=== PATIENT | female | born 1970 | race Caucasian/White ===

== ENCOUNTER 2021-07-09 18:34 | Emergency (ER) | payer OTHER, SELFPAY ==
--- NOTE | ~2021-07-09 | XR_ITS ---
EXAMINATION: XR CHEST CLINICAL INFORMATION: Cough. COMPARISON: 09/17/2018 TECHNIQUE: Frontal view of the chest was obtained. FINDINGS: The lungs are well expanded. There is no focal consolidation, edema, or effusion. No pneumothorax. The cardiomediastinal silhouette is within normal limits. No acute osseous abnormality. XR/XR chest 1V IMPRESSION: Clear lungs.
[2021-07-09 19:42] VITALS: BP 141/102; PULSE 99; RESP 16; TEMP 36.6; O2SAT 98; BMI 32.9
--- NOTE | 2021-07-09 19:50 | ECG_ITS ---
Test Reason : CHEST WALL PAIN Blood Pressure : / mmHG Vent. Rate : 092 BPM Atrial Rate : 092 BPM P-R Int : 130 ms QRS Dur : 076 ms QT Int : 360 ms P-R-T Axes : 044 026 038 degrees QTc Int : 445 ms Normal sinus rhythm Normal ECG When compared with ECG of 17-SEP-2018 19:21, No significant change was found Referred By: Generic ED Physician Electronically Signed By:RENE SERRA
[2021-07-09 22:36] LABS: Basophils Percent Auto 0.2 % (0-2); Eosinophils Absolute Auto 0.2 X10*3/uL (0.0-0.4); Eosinophils Percent Auto 3.4 % (0-4); Hematocrit 35.7 % (37.0-47.0); Hemoglobin 11.4 g/dl (12.0-16.0); Imm Gran Abs Auto 0.01 X10*3/uL (0.00-0.03); Imm Gran Pct Auto 0.2 % (0.0-0.4); Lymphocytes Absolute Auto 1.4 X10*3/uL (1.2-4.9); Lymphocytes Percent Auto 24.6 % (20-40); MANUAL DIFF FLAG NO; Mean Corpuscular HGB Conc 31.9 g/dl (31.0-35.0); Mean Corpuscular Hemoglobin 30.5 pg (27.0-33.0); Mean Corpuscular Volume 95.5 fL (80.0-98.0); Mean Platelet Volume 8.7 fL (9.4-12.3); Monocytes Absolute Auto 0.3 X10*3/uL (0.1-1.2); Monocytes Percent Auto 5.9 % (2-11); Neutrophils Absolute Auto 3.7 x10*3/uL (2.0-8.3); Neutrophils Percent Auto 65.7 % (45-73); Platelet Count 254 X10*3/uL (160-400); Red Blood Count 3.74 X10*6/uL (4.20-5.50); Red Cell Distribution Width 11.9 % (11.0-16.0); White Blood Count 5.6 X10*3/uL (4.8-10.8)
--- NOTE | 2021-07-09 22:47 | ED.GENADULT ---
HPI - General Adult General Chief complaint: General Medical Stated complaint: fall/head INJ/COVID+ Time Seen by Provider: 07/09/21 22:44 Source: patient Mode of arrival: ambulatory Limitations: no limitations History of Present Illness HPI narrative: 50-year-old female came in for evaluation of lightheadedness and dizziness. Patient recently diagnosed with COVID, decreased p.o. intake patient has been feeling dehydrated trying to force Pedialyte drinks, patient felt dizzy and lightheaded when she bent over yesterday subsequently when patient stood up passed out fell down and hit her head with short interval Of LOC. Patient recently diagnosed with COVID that was contracted from a family member, patient had a history of pulmonary embolism and dizziness was the main symptoms of her pulmonary embolism, patient otherwise decline chest pain or shortness of breath. Related Data Allergies Allergy/AdvReac Type Severity Reaction Status Date / Time amoxicillin [AMOXICILLIN] Allergy Unknown HIVES Unverified 01/09/20 14:52 codeine [CODEINE] Allergy Unknown ITCHY Unverified 01/09/20 14:52 Review of Systems Review of Systems: All other systems are reviewed and are negative Constitutional: Reports as per HPI and Reports no additional constitutional complaints Eyes: Reports as per HPI and Reports no additional eye complaints Reports system reviewed and no additional complaints, except as documented Cardiovascular: Reports as per HPI and Reports no additional cardiovascular complaints Respiratory: Reports as per HPI and Reports no additional respiratory complaints Gastrointestinal: Reports as per HPI and Reports no additional gastrointestinal complaints Genitourinary: Reports no additional female genitourinary complaints Musculoskeletal: Reports no additional musculoskeletal complaints Skin/Breast: Reports system reviewed and no additional complaints, except as docu Psychiatric: Reports no additional psychiatric complaints Endocrine: Reports no additional endocrine complaints Hematologic/Lymphatic: Reports no additional hematologic/lymphatic complaints Allergic/Immunologic: Reports no additional allergic/immunologic complaints Reports system reviewed and no additional complaints, except as documented and Reports Abnormal speech present COUNT INCLUDES [facility] Past Medical History Medical History Anemia Hypertension Low blood sugar Small bowel disease Social History Social History Advance Directives: No Advance Directives Information Provided: No Patient : No Physical Exam ED Vital Signs: Vital Signs - 24 hr 07/09/21 19:42 07/09/21 23:19 07/09/21 23:22 Temperature 97.9 F Pulse Rate 99 80 94 Respiratory Rate 16 Blood Pressure 141/102 H 139/91 H 125/94 H Pulse Oximetry 98 BMI result Body Mass Index 32.9 vital signs have been reviewed as appeared to be correct. Blood pressure normal. Heart rate normal. Respiration rate normal. Temperature normal. Oxygen saturation normal. Appearance: Alert. Oriented X3. No acute distress. Head: Normal external exam. Normocephalic. Atraumatic. No Bey signs noted. No raccoon eyes noted Eyes: PERRLA. EOMI. Conjunctiva and sclera normal. Eyelids normal. ENT: TM's Normal. Pharynx normal. Uvula midline. Moist mucous membranes. No trismus noted. No drooling noted. No muffled voice noted. Neck: Normal inspection. Neck supple. FROM. No adenopathy. Thyroid Normal. No meningeal signs. No neck mass noted. CVS: Normal heart rate and rhythm. Heart sound normal. No murmurs noted. Pulses normal throughout. Respiratory: No respiratory distress. Painless inspiration. Breath sounds normal. No wheezes/rales/rhonchi noted. Chest nontender. No accessory muscle usage noted or decreased air movement noted. Abdomen: Soft and nontender. Bowel sounds normal in all 4 quadrants. No distention noted. No organomegaly noted. No visible injury noted. Back: No CVA tenderness. Full range of motion noted. Skin: Skin warm and dry. Normal skin color. Normal skin turgor. No rashes/lesions/lacerations noted. Extremities: No lower extremity edema. Extremities exhibit normal range of motion. Extremities nontender. Neuro: Oriented X 3. Cranial nerve exam: II-XII are grossly intact No motor deficit. No sensory deficit. Reflexes normal. Course Course Course Narrative: assessment and plan 50-year-old female recently diagnosed with COVID infection, came in after having feeling of generalized weakness and dehydration, labs are unremarkable, D-dimer is negative for PE (patient had history of PE with symptoms of just dizziness) stable vital signs Negative orthostatic vital signs. Feels slightly better after IV hydration. Medical Decision Making Medical Records Medical records reviewed: Yes I reviewed the patient's medical records. Lab Data Lab results reviewed: Yes I reviewed the patient's lab results. Result diagrams: 07/09/21 22:29 07/09/21 22:29 Labs: Lab Results 07/09/21 07/09/21 07/09/21 Range/Units 22:29 22:29 23:16 WBC 5.6 (4.8-10.8) X10*3/uL RBC 3.74 L (4.20-5.50) X10*6/uL Hgb 11.4 L (12.0-16.0) g/dl Hct 35.7 L (37.0-47.0) % MCV 95.5 (80.0-98.0) fL MCH 30.5 (27.0-33.0) pg MCHC 31.9 (31.0-35.0) g/dl RDW 11.9 (11.0-16.0) % Plt Count 254 (160-400) X10*3/uL MPV 8.7 L (9.4-12.3) fL Immature Gran % (Auto) 0.2 (0.0-0.4) % Neut % (Auto) 65.7 (45-73) % Lymph % (Auto) 24.6 (20-40) % [place] % (Auto) 5.9 (2-11) % Eos % (Auto) 3.4 (0-4) % Baso % (Auto) 0.2 (0-2) % Lymph # (Auto) 1.4 (1.2-4.9) X10*3/uL [place] # (Auto) 0.3 (0.1-1.2) X10*3/uL Eos # (Auto) 0.2 (0.0-0.4) X10*3/uL Baso # (Auto) 0.0 (0.0-0.2) X10*3/uL Abs Immat Gran (auto) 0.01 (0.00-0.03) X10*3/uL Absolute Neuts (auto) 3.7 (2.0-8.3) x10*3/uL Absolute Nucleated RBC 0.000 (0.0-0.012) X10*3/uL Nucleated RBC % (auto) 0.0 (0.0-0.2) /100WBC D-Dimer High Sensitivty < 150 NG/ML Sodium 136 (135-145) mmol/L Potassium 5.0 (3.3-5.1) mmol/L Chloride 99 (96-108) mmol/L Carbon Dioxide 26 (22-29) mmol/L Anion Gap 16 (12-20) BUN 14 (9-16) mg/dL Creatinine 0.91 (0.5-1.4) mg/dL Estim Creat Clear Calc 74.8 Estimated GFR > 60 Random Glucose 117 H (60-115) mg/dL Calcium 8.8 (8.4-10.2) mg/dL Urine Color Urine Appearance Urine pH (5.0-8.0) Ur Specific [place] (1.005-1.025) Urine Protein (NEG-TRACE) MG/DL Urine Glucose (UA) (NEG) MG/DL Urine Ketones (NEG) MG/DL Urine Blood (NEG) Urine Nitrite (NEG) Ur Leukocyte Esterase (NEG) Urine Test (NEGATIVE) Influenza Type A (PCR) (Negative) Influenza Type B (PCR) (Negative) RSV RNA Qual (PCR) (Negative) SARS-CoV-2 RNA (RT-PCR) (Negative) 07/09/21 07/09/21 07/09/21 Range/Units 23:16 23:30 23:30 WBC (4.8-10.8) X10*3/uL RBC (4.20-5.50) X10*6/uL Hgb (12.0-16.0) g/dl Hct (37.0-47.0) % MCV (80.0-98.0) fL MCH (27.0-33.0) pg MCHC (31.0-35.0) g/dl RDW (11.0-16.0) % Plt Count (160-400) X10*3/uL MPV (9.4-12.3) fL Immature Gran % (Auto) (0.0-0.4) % Neut % (Auto) (45-73) % Lymph % (Auto) (20-40) % [place] % (Auto) (2-11) % Eos % (Auto) (0-4) % Baso % (Auto) (0-2) % Lymph # (Auto) (1.2-4.9) X10*3/uL [place] # (Auto) (0.1-1.2) X10*3/uL Eos # (Auto) (0.0-0.4) X10*3/uL Baso # (Auto) (0.0-0.2) X10*3/uL Abs Immat Gran (auto) (0.00-0.03) X10*3/uL Absolute Neuts (auto) (2.0-8.3) x10*3/uL Absolute Nucleated RBC (0.0-0.012) X10*3/uL Nucleated RBC % (auto) (0.0-0.2) /100WBC D-Dimer High Sensitivty NG/ML Sodium (135-145) mmol/L Potassium (3.3-5.1) mmol/L Chloride (96-108) mmol/L Carbon Dioxide (22-29) mmol/L Anion Gap (12-20) BUN (9-16) mg/dL Creatinine (0.5-1.4) mg/dL Estim Creat Clear Calc Estimated GFR Random Glucose (60-115) mg/dL Calcium (8.4-10.2) mg/dL Urine Color YELLOW Urine Appearance CLEAR Urine pH 7.0 (5.0-8.0) Ur Specific [place] 1.010 (1.005-1.025) Urine Protein NEG (NEG-TRACE) MG/DL Urine Glucose (UA) NEG (NEG) MG/DL Urine Ketones NEG (NEG) MG/DL Urine Blood NEG (NEG) Urine Nitrite NEG (NEG) Ur Leukocyte Esterase NEG (NEG) Urine Test NEGATIVE (NEGATIVE) Influenza Type A (PCR) NEGATIVE (Negative) Influenza Type B (PCR) NEGATIVE (Negative) RSV RNA Qual (PCR) NEGATIVE (Negative) SARS-CoV-2 RNA (RT-PCR) POSITIVE A (Negative) Discharge Plan Discharge Clinical Impression: Dehydration Patient Disposition: Home, Self-Care Instructions: Dehydration (ED) Referrals: Mason Stein MD [Primary Care Provider] - 2 days
[2021-07-09 22:51] LABS: Anion Gap 16 (12-20); Blood Urea Nitrogen 14 mg/dL (9-16); Calcium 8.8 mg/dL (8.4-10.2); Carbon Dioxide 26 mmol/L (22-29); Chloride 99 mmol/L (96-108); Creatinine Clr Calc Pharmacy 74.8; Estimated Glomerular Filt Rate > 60; Glucose Random 117 mg/dL (60-115); Sodium 136 mmol/L (135-145)
[2021-07-09 23:19] VITALS: BP 139/91; BP 141/87; PULSE 80; PULSE 85
[2021-07-09 23:22] VITALS: BP 125/94; PULSE 94
[2021-07-09 23:43] LABS: Appearance Urine CLEAR; Color Urine YELLOW; Glucose Urine UA NEG (NEG); Leukocyte Esterase Urine NEG (NEG); Nitrite Urine NEG (NEG); Urine Blood NEG (NEG); Urine Ketones NEG (NEG); Urine Protein NEG (NEG-TRACE)
[2021-07-09 23:47] LABS: UPreg QC Valid YES; Urine Pregnancy NEGATIVE (NEGATIVE)
[2021-07-10 00:06] LABS: Influenza A PCR NEGATIVE (Negative); Influenza B PCR NEGATIVE (Negative); Resp Syncy Virus RNA Qual PCR NEGATIVE (Negative); SARS COV2 PCR INHOUSE POSITIVE (Negative)
[2021-07-10 00:36] LABS: D Dimer High Sensitivity < 150 NG/ML
[2021-07-10 02:01] VITALS: BP 137/90; PULSE 84; RESP 14; O2SAT 98
[2021-07-10] MEDS: Acetaminophen 325 MG TABLET 650 MG PO (02:23)
[2021-07-10 04:00] VITALS: BP 121/75; PULSE 79; RESP 16; TEMP 36.7; O2SAT 99
== END 2021-07-10 05:03 | disposition home or self-care (01) ==
PROVIDERS: Emergency Provider Emergency Medicine; PCP Hospitalist
DX: U07.1 COVID-19 (principal); E86.0 Dehydration; R42 Dizziness and giddiness; I10 Essential (primary) hypertension
CPT/HCPCS: 0241U; 36415; 71045; 80048; 81003; 81025; 85025; 85379; 93005; 99283; 99284

== ENCOUNTER 2025-02-05 16:37 | Emergency (ER) | payer MEDICAID, SELFPAY ==
--- NOTE | ~2025-02-05 | XR_ITS ---
CLINICAL HISTORY: fall onto left side, LL rib pain 4 view, chest and left ribs Comparison: None provided Findings: Bones intact. No dislocations. The lungs are unremarkable. No left hemithorax rib fracture identified. IMPRESSION: 1. No acute fractures. This document has been electronically signed by: Den Joshi MD on 02/05/2025 18:02:52
--- NOTE | ~2025-02-05 | XR_ITS ---
CLINICAL HISTORY: fall onto knee --- Additional Notes or Special Instructions: HX of meniscal injury 6 view left knee Comparison: None provided Findings: Mild marginal heterotopic bone formation on the medial knee compartment. Mild osteopenia. Moderate narrowing of the patellofemoral joint. No joint effusion. No radiopaque foreign body. IMPRESSION: 1. Mild osteoarthritis of the medial knee compartment. 2. Moderate patellofemoral osteoarthritis. 3. No acute osseous injury. This document has been electronically signed by: eDn Joshi MD on 02/05/2025 18:05:27
[2025-02-05 17:05] VITALS: BP 167/94; PULSE 99; RESP 20; TEMP 36.1; O2SAT 96; BMI 46.9
--- NOTE | 2025-02-05 17:05 | ED.GENADULT ---
HPI - General Adult General Chief complaint: Extremity Problem Stated complaint: fall yesterday, L knee and hand pain Time Seen by Provider: 02/05/25 20:26 Source: patient Mode of arrival: ambulatory Limitations: no limitations History of Present Illness ED Provider: Dr. Brown HPI narrative: 54-year-old female presented hospital today for evaluation of left hand pain, left tibia pain, left-sided lower rib pain after a fall. Patient stated that she fell yesterday. She was trying to put a harness on her dog when her dog moved and she is to fell forward. Landed on her left side. Patient stated that she does have history of left knee osteoarthritis which does give out on her occasionally. She also has history of meniscal injury to her left knee. She is complaining of achiness on the left lower ribs. No abdominal pain. She is also complaining of bruising of the left hand. However she has full range of motion. She is also complaining of some bruising of the anterior tibia. Related Data Previous Rx's ?Medication ?Instructions ?Recorded acetaminophen 500 mg tablet 1,000 mg (2 x 500 mg) PO Q8H 10 02/05/25 days #60 tabs ibuprofen 400 mg tablet 400 mg PO Q8H 10 days #30 tabs 02/05/25 lidocaine 5 % topical patch 1 patch topical DAILY 15 days #15 02/05/25 ea Allergies Allergy/AdvReac Type Severity Reaction Status Date / Time amoxicillin (AMOXICILLIN) Allergy Unknown HIVES Verified 02/05/25 17:10 codeine (CODEINE) Allergy Unknown ITCHY Verified 02/05/25 17:10 Review of Systems Review of Systems: Pertinent review of systems as mentioned in HPI. All other system otherwise negative. [facility] Past Medical History [facility] Narrative: History of small-bowel obstructions in the past, gastric bypass surgery Medical History Anemia Hypertension Low blood sugar Small bowel disease Social History Social History Smoked in Last 30 Days: No Use of substances other than those prescribed or required for medical reasons: No Advance Directives: No Advance Directives Information Provided: Yes Physical Exam ED Exam Exam: General: Pleasant, no distress, interacting appropriately Head: Normacephalic, atraumatic ENT: oral mucosa moist, neck supple, no tracheal deviation Cardiovascular: regular rate, regular rhythm, no murmurs, rubbing, gallops, tenderness on the left lower rib on the left side Respiratory: CTAB, no wheeze, rales, rhonchi Gastrointestinal: Soft, non distended, non tender, non guarding Extremities: Patient is able to flex and extend her left knee. She does have ecchymosis on the anterior tibia. Some bruising over the left hand as well. And some swelling. Neurological: Awake and alert, no facial droop noted Skin: Warm and dry Psychiatric: Appropriate mood and thoughts Vital Signs: Vital Signs - 24 hr 02/05/25 17:05 02/05/25 20:27 02/05/25 22:05 Temperature 97.0 F 97.8 F 97.8 F Pulse Rate 99 89 89 Respiratory Rate 20 16 16 Blood Pressure 167/94 H 162/97 H 162/97 H Pulse Oximetry 96 96 96 Oxygen Delivery Method Room Air Room Air Room Air BMI result Body Mass Index 46.9 Course Course Course Narrative: This is a Rapid Medical Examination (RME) performed by Saima Hall PA-C in triage. Full HPI, ROS, assessment and treatment plan per primary provider in the Main ED. Hx: Patient is a 54 yo F presenting for evaluation after a mechanical fall yesterday landing on her left knee and wrist. Today, she endorses pain and numbness of L knee. Also endorses LUQ pain. Past history of meniscal root tear of L knee. Denies impact of head or ribs. Rates pain 6/10. Does not take blood thinners. History of provoked PE. Plan:XRs Medications Administered Discontinued Medications Generic Name Dose Route Start Last Admin Trade Name Freq PRN Reason Stop Dose Admin Acetaminophen 975 mg 02/05/25 21:33 02/05/25 21:50 Acetaminophen 325 Mg Tablet PO 02/05/25 21:34 975 mg ONCE ONE Administration Ibuprofen 400 mg 02/05/25 21:33 02/05/25 21:50 Ibuprofen 400 Mg Tablet PO 02/05/25 21:34 400 mg ONCE ONE Administration Lidocaine 1 patch 02/05/25 21:33 02/05/25 21:49 Lidocaine 4 % Patch Adh..Patch TRANSDERMA 02/05/25 21:34 1 patch ONCE ONE Administration Protocol Medical Decision Making Medical Decision Making MDM Narrative: This is a 54-year-old female presented hospital today for evaluation of left tibia pain, left hand pain and left lower rib pain after a fall. On my exam the patient does not have any guarding on exam. I do not think this is a intra-abdominal pathology. Patient does have slight soreness over palpation of the left lower rib. Patient appears to be well. Does not appear to be in acute distress. She does have ecchymosis of the left tibia. I do not see any obvious trauma over the left knee. Patient also has some ecchymosis in the left hand. She has full range of motion in her left hand. CMS intact in the left lower extremity as well. Patient was able to bear weight and walk on her left leg. I have low suspicion for fracture. Review patient's x-ray. Rib x-ray did not show any signs of fracture. Patient's left knee x-ray did not show any signs of acute osseous injury as well. We will plan to discharge patient with lidocaine patch, ibuprofen and Tylenol for her pain. We will prescribe her some Flexeril as well. We will have patient follow up with her primary care doctor. Return precautions provided to return to the ER if her condition worsens. Patient agrees and understands this plan Differential Diagnosis Differential Diagnoses: The differential diagnosis associated with the presentation includes Ecchymosis, fall, rib fracture Independent Interpretation I performed an independent interpretation of an: Plain X-Ray Radiology Impression Discussion of test interpretation with radiology: I have reviewed the radiologist's reading. Discharge Plan Discharge Clinical Impression: Ecchymosis Contusion of rib on left side Qualifiers: Encounter type: initial encounter Qualified Code(s): S29.8XXA - Other specified injuries of thorax, initial encounter Patient Disposition: Home, Self-Care Instructions: Ecchymosis (ED) Prescriptions: New acetaminophen 500 mg tablet 1,000 mg PO Q8H 10 Days Qty: 60 0RF lidocaine 5 % adhesive patch,medicated 1 patch topical DAILY 15 Days Qty: 15 0RF Rx Instructions: leave on most painful area for up to 12 hrs ibuprofen 400 mg tablet 400 mg PO Q8H 10 Days Qty: 30 0RF Interventions: ED Discharge Assessment Last Done: 02/05/25 22:05 Discharge Date/Time: 02/05/25 22:06 Print Language: Syriac
[2025-02-05 20:27] VITALS: BP 162/97; PULSE 89; RESP 16; TEMP 36.6; O2SAT 96
--- OUTSIDE RECORDS SUMMARY | 2025-02-05 20:29 | XMS_ITS | Clinical Summary ---
Author Organization [facility] Address [address] [place] [address] Care Team Providers Care Transportation Operations Manager Name Role Phone No, Pcp MD Primary Care Provider Unavailabl e Allergies Active Allergy Reactions Criticality Noted Date Comments Amoxicillin 11/24/2020 Codeine Rash Low 03/02/2015 Doxycycline Other (See Comments) 10/01/2020 Penicillins Hives,Other (See Comments) 04/04/2011 Converted from Drug Class Allergy: Penicillins Converted from Generic Allergy: Amoxicillin Medications albuterol (PROVENTIL HFA;VENTOLIN HFA) 90 mcg/actuation inhaler INHALE 1 PUFF BY MOUTH EVERY 4 HOURS FOR 30 DAYS Active amLODIPine (NORVASC) 5 MG tablet amlodipine 5 mg tablet Active amLODIPine (NORVASC) 5 MG tablet Take 5 mg by mouth once daily. 1 Active SYMBICORT 160-4.5 mcg/actuation inhaler TAKE 2 PUFFS EVERY 12 HOURS 1 Active SUBOXONE 8-[address] 1 FILM UNDER THE TONGUE AND ALLOW TO DISSOLVE TWICE DAILY 1 Active dexmethylpheni date (FOCALIN) 5 MG tablet TAKE 1 TABLET IN THE AM AND 1 IN THE AFTERNOON NEEDED 1 Active ergocalciferol (VITAMIN D2) 1,250 mcg (50,000 unit) capsule ergocalciferol (vitamin D2) 1,250 mcg (50,000 unit) capsule Active FLUoxetine (PROZAC) 20 MG capsule fluoxetine 20 mg capsule Active gabapentin (NEURONTIN) 300 MG capsule gabapentin 300 mg capsule Active lisinopriL (PRINIVIL) 40 MG tablet Take 40 mg by mouth once daily. 1 Active omeprazole (PRILOSEC) 20 MG delayed release capsule Take 40 mg by mouth once daily. Active senna (SENOKOT) 8.6 mg tablet Take 1 tablet by mouth once daily. Active Social History Tobacco Use Types Packs/Day Years Used Date Smoking Tobacco: Never Comments No Sex and Gender Information Value Date Recorded Sex Assigned at Not on file Legal Sex Female 3:59 PM EDT Gender Identity Not on file Sexual Orientation Not on file Last Filed Vital Signs Vital Sign Reading Time Taken Comments Blood Pressure 110/77 11/24/2020 4:46 PM EDT Pulse 82 11/24/2020 4:46 PM EDT Temperature 36.6 C (97.9 F) 11/24/2020 4:46 PM EDT Respiratory Rate 16 11/24/2020 4:46 PM EDT Oxygen Saturation 100% 11/24/2020 4:46 PM EDT Inhaled Oxygen Concentration - - Weight - - Height - - Body Mass Index - - Plan of Treatment Not on file Insurance [facility] Care Teams Transportation Operations Manager Relationship Specialty Start Date End Date No, Pcp, No Address No [place] [id number] PCP - General 11/24/20
--- OUTSIDE RECORDS SUMMARY | 2025-02-05 20:29 | XMS_ITS | Patient Health Record ---
Author Organization [facility] [place] Address [address] [place] [id number] Care Team Providers Care Doughmaker Name Role Phone Jesse Bingham MD Primary Care Provider Arun Beckman Unavailable [phone] Allergies Allergen (clinical drug ingredient) Drug/Non Drug Allergy documented on EMR Reaction Allergy Type Onset Date Status amoxicillin Amoxicillin Unknown Drug Allergy Act adan codeine Codeine Unknown Drug Allergy Active doxycycline Doxycycline Unknown Drug Allergy Act adan Reason For Referral No Information Medications Medication SIG (Take, Route, Frequency, Duration) Notes Start Date End Date Status ProAir HFA 108 (90 Base) MCG/ACT 1 puff as needed Inhalation every 4 hrs Active Prednisone 40 x 5 days 20 Mg 2 tab a day by mouth Once a day; Duration: 5 days 07/07/2021 Active Symbicort 160-4.5 MCG/ACT 2 puffs Inhala tion Twice a day; Duration: 30 days Active Gabapentin 300 MG 4 capsule Orally onc e a day 3x aday Active Lisinopril 40 MG 1 tablet Orally Once a day; Duration: 30 day(s) Active amLODIPine Besylate 5 MG 1 tablet Orally Once a day; Duration: 30 day(s) Active Omeprazole 40 MG 1 capsule 30 minutes before morning meal Orally Once a day; Duration: 30 day(s) Active FLUoxetine HCl 60 MG 1 tablet Orally Onc e a day; Duration: 30 day(s) Active Focalin XR 20 MG 1 capsule in the mor chacha Orally Once a day Active Focalin 5 MG 1 tablet Orally Twic e a day Active Social History Tobacco Use: Social History Observation Description Date Details (start date - stop date) Never Smoker NA - NA Tobacco Question Answer Notes Are you a: never smoker Problems Problem Type SNOMED Code ICD Code Onset Dates Problem Status W/U Status Risk Notes Problem Asthma without status asthmaticus (67112079) Asthma, unspecified asthma severity, unspecified whether complicated, unspecified whether persistent (J45.909) Active confirmed Plan Of Treatment Future Test Test Name Order Date Chest X-Ray PA and Lateral 02/16/2021 Insurance Providers Payer Name Payer Address Payer Phone Subscriber Number Group Number Insured Name Patient Relationship to Insured Coverage Start Date Coverage End Date [employer]Graph, [employer] [address] [place] [phone] [id number] WojciechMaria Del Carmen shirley Self - patient is the insured Medical (General) History Medical History History ICD Code Asthma Aspiration pneumonia ADHD Hiatal hernia reflux PE after surgery in 2016 Opioid dependence, in remission Thiamine deficiency Surgical History Surgery Date(Month/Year) Bariatric surgery in 2015
--- OUTSIDE RECORDS SUMMARY | 2025-02-05 20:29 | XMS_ITS | Clinical Summary ---
Author Organization [facility] Address [address] [place] [address] Care Team Providers Care Will Call Clerk Name Role Phone Hua Montoya MD Primary Care Provider Unavail able Allergies Active Allergy Reactions Criticality Noted Date Comments Amoxicillin 03/02/2015 Codeine 03/02/2015 Morphine 03/02/2015 Medications Medication Sig Dispensed Refills Start Date End Date Status FLUOXETINE HCL PO Take by mouth. 0 Act adan oxyCODONE-acetaminoph en (PERCOCET) 5-325 MG per tablet Take 1 tablet by mouth every 4 (four) hours as needed. 18 tablet 0 03/02/2015 Active Social History Tobacco Use Types Packs/Day Years Used Date Smoking Tobacco: Never Assessed Sex and Gender Information Value Date Recorded Sex Assigned at Not on file Gender Identity Not on file Sexual Orientation Not on file Last Filed Vital Signs Vital Sign Reading Time Taken Comments Blood Pressure 125/68 03/02/2015 3:16 PM EST Pulse 71 03/02/2015 3:16 PM EST Temperature 37 C (98.6 F) 03/02/2015 3:16 PM EST Respiratory Rate 18 03/02/2015 3:16 PM EST Oxygen Saturation 99% 03/02/2015 3:16 PM EST Inhaled Oxygen Concentration - - Weight 95.3 kg (210 lb) 03/02/2015 12:21 PM EST Height 157.5 cm (5' 2 ) 03/02/2015 12:21 PM EST Body Mass Index 38.41 03/02/2015 12:21 PM EST Plan of Treatment Not on file Care Teams Will Call Clerk Relationship Specialty Start Date End Date Hua Montoya MD PCP - General Internal Medicine 03/02/15
--- OUTSIDE RECORDS SUMMARY | 2025-02-05 20:29 | XMS_ITS | Encounter Summary ---
Author Organization [employer] Address [address] [facility] [address] [place] [address] Care Team Providers Care Prosthetic Aides Teacher Name Role Phone Unavailable Primary Care Provider Unavailabl e Reason for Visit * Reason Onset Date Comments clarification on medication usage 09/28/2023 Encounter Details Date Type Department Care Team ([facility] st Contact Info) Description 09/28/2023 Telephone C [facility] [address] [place], [place] [phone] Jai Boles, DMD [address] [place], [place] [phone] clarification on medication usage Social History Tobacco Use Types Packs/Day Years Used Date Smoking Tobacco: Never Smokeless Tobacco: Never Alcohol Use Standard Drinks/Week Comments Yes 0 (1 standard drink = 0.6 oz pur e alcohol) Comments Unknown Sex and Gender Information Value Date Recorded Sex Assigned at Female 02/21/2022 10:29 AM EDT Legal Sex Female 10:29 AM EDT Gender Identity Female 08/04/2023 12:50 PM EDT Sexual Orientation Choose not to disclose 2023 12:50 PM EDT documented as of this encounter Miscellaneous Notes * Telephone Encounter - Kerry Horner - 09/28/2023 11:47 [address] EDT Message for Dr. Boles Patient states that on her visit on 09/26 she was under the impression that metronidazole was goingto be sent from dental office to pharmacy. Instead Zithromax was sent. She states she also went to primary care provider yesterday and he did sent in the metronidazole 500mg to be taken 3 times a dayfor 10 days. She wanted to clarify from the dental side if she is ok to take both medications together. She understands that the Zithromax is a 5 day regimen but needs clarifications because she thought that this would be sent by the provider in dental and it was not. Pls reach out to patient for clarification documented in this encounter Plan of Treatment Not on file documented as of this encounter Visit Diagnoses Not on filedocumented in this encounter
--- OUTSIDE RECORDS SUMMARY | 2025-02-05 20:29 | XMS_ITS | Clinical Summary ---
Author Organization [employer] Address [address] [facility] [address] [place] [address] Care Team Providers Care E Commerce Manager Name Role Phone Unavailable Primary Care Provider Unavailabl e Allergies Active Allergy Reactions Criticality Noted Date Comments Codeine Itching,Nausea,Hives ,Ra sh Low 03/02/2015 Doxycycline Hives,Unknown 10/01/2020 Penicillins Hives,Rash,Unknown Low 04/04/2011 Converted from Drug Class Allergy: Penicillins Converted from Generic Allergy: Amoxicillin Medications Ventolin HFA 108 (90 Base) MCG/ACT inhaler INHALE 1 PUFF BY MOUTH EVERY 4 HOURS Active omeprazole (PriLOSEC) [address] capsule Take 1 capsule by mouth 2 times daily. 9 Active FLUoxetine (PROzac) 40 MG capsule TAKE 1 CAPSULE BY MOUTH ONCE A DAY TAKE WITH 20MG CAPSULE FOR TOTAL OF 60MG DAILY 9 Active Focalin XR 10 MG 24 hr capsule Take 20 mg by mouth in the morning. 4 Active Suboxone 8-2 MG SL film TAKE 1 FILM BY MOUTH EVERY DAY Active clindamycin (Cleocin) 300 MG capsule Take 300 mg by mouth 3 times daily. 4 Active gabapentin (Neurontin) 300 MG capsule Take 300 mg by mouth 3 times daily. Active ibuprofen 800 MG tablet TAKE 1 TABLET BY MOUTH EVERY 6-8 HOURS NEEDED FOR PAIN 4 Active chlorhexidine (Peridex) 0.12 % solutionIndicat ions:Dental abscess Swish 15 mL morning and night for 1 minute. Spit, do not swallow. Do not eat or drink for 30 minutes following use. 473 mL 4 Active azithromycin (Zithromax) 250 MG tabletIndicatio ns:Dental abscess TAKE 2 TABLETS BY MOUTH TODAY, THEN TAKE 1 TABLET DAILY FOR 4 DAYS DIRECTED 6 tablet 4 Active Sodium Fluoride (PreviDent 5000 Booster Plus) 1.1 % paste Apply a smear of paste on the brush and brush thoroughly twice daily. Spit, do not rinse. 112 g 2 4 Active Active Problems Problem Noted Date Diagnosed Date Asthma 08/04/2023 Depression 08/04/2023 Essential hypertension 08/04/2023 GERD (gastroesophageal reflux disease) 4 Incisional hernia 08/04/2023 Iron deficiency anemia 08/04/2023 Social History Tobacco Use Types Packs/Day Years Used Date Smoking Tobacco: Never Smokeless Tobacco: Never Tobacco Cessation:Counseling Given: Not Answered Alcohol Use Standard Drinks/Week Comments Yes 0 (1 standard drink = 0.6 oz pur e alcohol) Comments Unknown Sex and Gender Information Value Date Recorded Sex Assigned at Female 02/21/2022 10:29 AM EDT Legal Sex Female 10:29 AM EDT Gender Identity Female 08/04/2023 12:50 PM EDT Sexual Orientation Choose not to disclose 2023 12:50 PM EDT Last Filed Vital Signs Vital Sign Reading Time Taken Comments Blood Pressure 134/74 01/18/2024 1:06 PM EDT Pulse 65 01/18/2024 1:06 PM EDT Temperature - - Respiratory Rate - - Oxygen Saturation - - Inhaled Oxygen Concentration - - Weight - - Height - - Body Mass Index - - Plan of Treatment Health Maintenance Due Date Last Done Comments CT Colonography 1972 Colonoscopy 1972 Colorectal Cancer Screening 1972 Depression Screening 1972 FIT DNA/Cologuard 1972 FIT 1972 FOBT 1972 HIV Screening 1972 Lipid Panel 1972 SDOH Screening 1972 Sigmoidoscopy 1972 Disability Screening 1972 Alcohol/Substance Use Screening 1984 Family Planning (PISQ) 12/03/1987 Hepatitis C Screening 1990 DTaP/Tdap/Td Vaccines (1 - Tdap) 12/03/1991 Hepatitis B Vaccines (1 of 3 - 19+ 3-dose series) 12/03/1991 Pneumococcal Vaccine: 50+ Years (1 of 2 - PCV) 12/03/1991 Pap Smear 1993 Cervical Cancer Screening 2002 HPV/Cotest 2002 Mammogram 2012 Zoster Vaccines (1 of 2) 2022 Dental Oral Exam 07/18/2024 01/18/2024 Dental Prophylaxis 07/18/2024 01/18/2024 COVID-19 Vaccine (3 - season) 2024 01/18/2021, 12/25/2020 Influenza Vaccine (#1) 2024 03/18/2009 Tobacco Screening 01/17/2025 01/18/2024 Dental X-Ray: Bitewings 01/18/2025 01/18/20 24, 08/04/2023, 11/04/2016, Additional history exists Dental X-Ray: Full Mouth 01/18/2027 01/18/2024 RSV Patients and Patients Aged 60 years or older (1 - 1-dose 75+ series) 12/03/2047 HIB Vaccines Aged Out No longer eligi ble based on patient's age to complete this topic HPV Vaccines Aged Out No longer eligi ble based on patient's age to complete this topic Hepatitis A Vaccines Aged Out No long er eligible based on patient's age to complete this topic IPV Vaccines Aged Out No longer eligi ble based on patient's age to complete this topic Meningococcal B Vaccine Aged Out No l onger eligible based on patient's age to complete this topic Meningococcal Vaccine Aged Out No daysi nilam eligible based on patient's age to complete this topic RSV under 20 months Aged Out No longe r eligible based on patient's age to complete this topic Rotavirus Vaccines Aged Out No longer eligible based on patient's age to complete this topic Procedures Procedure Name Priority Date/Time Associated Diagnosis Comments PROPHYLAXIS - ADULT Routine 01/18/2024 1 :00 PM EDT INTRAORAL - COMPLETE SERIES OF RADIOGRAPHIC IMAGES Routine 01/18/2024 1:00 PM EDT PERIODIC ORAL EVALUATION - ESTABLISHED PATIENT Routine 01/18/2024 1:00 PM EDT from Last 3 Months or Most Recently Relevant to Health Maintenance Insurance [facility] MEDICAID STAND ADULT
--- OUTSIDE RECORDS SUMMARY | 2025-02-05 20:29 | XMS_ITS | Clinical Summary ---
Author Organization [facility] Address [address] [place] [address] Phone Care Team Providers Care Public Relations Senior Associate Name Role Phone Marko Sapp MD Primary Care Provider [phone] Social History Tobacco Use Types Packs/Day Years Used Date Smoking Tobacco: Never Assessed Comments Unknown Sex and Gender Information Value Date Recorded Sex Assigned at Not on file Legal Sex Female 11:31 PM EST Gender Identity Not on file Sexual Orientation Not on file Plan of Treatment Health Maintenance Due Date Last Done Comments Breast Cancer Screening 1972 Colorectal Cancer Screening: Colonoscopy 1972 DTaP,Tdap,and Td Vaccines (1 - Tdap) 12/03/1991 Hepatitis B Vaccines (1 of 3 - 19+ 3-dose series) 12/03/1991 Cervical Cancer Screening: P ap Smear 1993 Pneumococcal Vaccine: 50+ Ye ars (1 of 1 - PCV) 2022 RSV Immunization Adult Patie nts (1 - Risk 50-74 years 1-dose series) 2022 Zoster Vaccines (1 of 2) 2022 Cholesterol Screening (Lipid Panel) 02/16/2024 HIV Screening 02/16/2024 Hepatitis C Screening 02/16/2024 Social Influencers of Health Screening 02/16/2024 Depression Screening 04/24/2024 COVID-19 Vaccine (1 - 2023-2 5 season) 2024 Influenza Vaccine (#1) 2024 HIB Vaccines Aged Out No longer eligi [...] on patient's age to complete this topic MMR Vaccines Aged Out No longer eligi ble based on patient's age to complete this topic Meningococcal ACWY Vaccine Aged Out N o longer eligible based on patient's age to complete this topic Meningococcal B Vaccine Aged Out No l onger eligible based on patient's age to complete this topic RSV Immunization Patients Un felipa 20 months Aged Out No longer eligible b ased on patient's age to complete this topic Varicella Vaccines Aged Out No longer eligible based on patient's age to complete this topic Care Teams Public Relations Senior Associate Relationship Specialty Start Date End Date Marko Sapp MD [address] [place] [id number] PCP - General Internal Medicine 09/23/24
--- OUTSIDE RECORDS SUMMARY | 2025-02-05 20:29 | XMS_ITS | Encounter Summary ---
Author Organization [employer] Address [address] [facility] [address] [place] [address] Care Team Providers Care Rescue Worker Name Role Phone Unavailable Primary Care Provider Unavailabl e Reason for Visit * Reason Comments Med Refill Encounter Details Date Type Department Care Team (Late st Contact Info) Description 10/19/2023 Refill C [facility] [address] [place], [place] [phone] Jai Boles, DMD [address] [place] [address] Dental abscess Social History Tobacco Use Types Packs/Day Years [...] encounter Miscellaneous Notes * Telephone Encounter - Heather Rivera BDS - 10/20/2023 8:10 AM EDT Approving, but needs appt for additional refills. documented in this encounter Plan of Treatment Not on file documented as of this encounter Visit Diagnoses Diagnosis Dental abscess Periapical abscess without sinus documented in this encounter
[2025-02-05] MEDS: Lidocaine 4 % Patch ADH..PATCH 1 PATCH TRANSDERMA (21:49)
[2025-02-05 22:05] VITALS: BP 162/97; PULSE 89; RESP 16; TEMP 36.6; O2SAT 96
== END 2025-02-05 22:06 | disposition home or self-care (01) ==
PROVIDERS: Emergency Provider Student in an Organized Health Care Education/Training Program
DX: S20.212A Contusion of left front wall of thorax, initial encounter (principal); S69.92XA Unspecified injury of left wrist, hand and finger(s), initial encounter; M25.562 Pain in left knee; R07.89 Other chest pain; M79.642 Pain in left hand; W18.31XA Fall on same level due to stepping on an object, initial encounter; Y93.K1 Activity, walking an animal; Y92.480 Sidewalk as the place of occurrence of the external cause; Y99.8 Other external cause status
CPT/HCPCS: 71101; 73564; 99283; 99284

== ENCOUNTER → 2025-02-05 17:09 | Outpatient (BNV) | payer MEDICAID, SELFPAY | PROVIDERS: Visit Provider Radiology Diagnostic Radiology | DX: R07.89 Other chest pain (principal); M17.12 Unilateral primary osteoarthritis, left knee | CPT/HCPCS: 71101; 73564 ==